=== PATIENT | female | born 1985 | race Caucasian/White ===

== ENCOUNTER 2019-10-30 07:20 | Emergency (ER) | payer OTHER ==
[~2019-10-30] VITALS: Ht 154.9 cm; Wt 98.1 kg
[2019-10-30 07:48] VITALS: Ht 154.9 cm; Wt 98.1 kg
[2019-10-30 10:53] VITALS: BP 132/75
== END 2019-10-30 10:53 | disposition home or self-care (01) ==
LOC: ED 07:20
DX: K59.00 Constipation, unspecified (principal); Z90.49 Acquired absence of other specified parts of digestive tract
CPT/HCPCS: J7030